=== PATIENT | female | born 1970 | race Caucasian/White ===

== ENCOUNTER 2017-11-16 18:43 | Emergency (ER) | payer OTHER ==
[2017-11-16] MEDS: FAMOTIDINE 20 MG TABLET. PO (19:05)
[2017-11-16] MEDS: methylPREDNISolone SOD SUCC PF 125 MG/2 ML VIAL. IM (19:05)
== END 2017-11-16 19:18 | disposition home or self-care (01) ==
LOC: ER 18:43
DX: L23.7 Allergic contact dermatitis due to plants, except food (principal); Z88.0 Allergy status to penicillin; Z88.1 Allergy status to other antibiotic agents; Z88.4 Allergy status to anesthetic agent; Z88.6 Allergy status to analgesic agent
CPT/HCPCS: 96372; 99283; J2930

== ENCOUNTER 2019-01-31 22:16 | Emergency (ER) | payer OTHER ==
[~2019-01-31] VITALS: Ht 161.3 cm; Wt 62.1 kg
[~2019-01-31 22:16] MED LIST: ALBU2.5V8 INH; BENZ100C PO; BUDE180A IH; CETI10TA16 PO; DOXY100C2 PO; FAMO20TA5 PO; FLUT9.9S NS; GUAI-108 PO; HYDR25TA PO; MONT10TA49 PO; MULT1TAB52 PO; PRED-220 PO
[2019-01-31 22:20] VITALS: BP 139/78
[2019-01-31] MEDS ORDERED: SULF1TAB24 PO (23:24)
--- NOTE | 2019-01-31 23:27 | PHYS DOC ---
Past Medical History Past Medical History: No Pertinent History (RANDALL LEO APRN) Past Surgical History: Hysterectomy, Other Additional Past Surgical Histo: partial colon removal (RANDALL LEO APRN) Additional Information: 1/ppd Alcohol Use: Occasionally Drug Use: None (RANDALL LEO APRN) Adult General Chief Complaint Chief Complaint: SKIN PROBLEM HPI HPI Patient is a 48 year old female who presents with [lesion to her left chest wall for the past several months, worsened significantly over the last 3 days. Patient reports she had a raised lump on her left chest wall starting approximately 8 months ago, had not caused her no discomfort or concerns. Reports she had been working, does not know what may have happened, but she rubbed against something and 3 days ago she started notice it to be red, tender, swollen. States she has not taken any medications for this, does state she has several allergies. States he has been very itchy, and feels warm] (RANDALL LEO APRN) Review of Systems Review of Systems Constitutional: Denies fever or chills [] Eyes: Denies change in visual acuity, redness, or eye pain [] HENT: Denies nasal congestion or sore throat [] Respiratory: Denies cough or shortness of breath [] Cardiovascular: No additional information not addressed in HPI [] GI: Denies abdominal pain, nausea, vomiting, bloody stools or diarrhea [] : Denies dysuria or hematuria [] Musculoskeletal: Denies back pain or joint pain [] Integument: Denies rash reports lesion to left anterior chest wall[] Neurologic: Denies headache, focal weakness or sensory changes [] Endocrine: Denies polyuria or polydipsia [] All other systems were reviewed and found to be within normal limits, except as documented in this note. (RANDALL LEO APRN) Current Medications Current Medications Current Medications Medications (Trade) Dose Ordered Sig/Tomasa Start Time Stop Time Status Last Admin Dose Admin Trimethoprim/ Sulfamethoxazole (Bactrim Ds) 1 tab 1X ONCE 01/31/19 23:45 01/31/19 23:46 DC 01/31/19 23:41 1 TAB (YVON DE SOUZA DO) Allergies Allergies Allergies Coded Allergies Type Severity Reaction Last Updated Verified Penicillins Allergy Severe Anaphylaxis 02/10/14 Yes cephalexin Allergy Severe anaphylatic 02/10/14 No lidocaine Allergy Severe Anaphylaxis 02/10/14 No ketorolac Allergy Intermediate 03/07/15 No (YVON DE SOUZA DO) Physical Exam Physical Exam Constitutional: Well developed, well nourished, no acute distress, non-toxic appearance. [] HENT: Normocephalic, atraumatic, bilateral external ears normal, oropharynx moist, no oral exudates, nose normal. [] Eyes: PERRLA, EOMI, conjunctiva normal, no discharge. [] Neck: Normal range of motion, no tenderness, supple, no stridor. [] Cardiovascular:Heart rate regular rhythm, no murmur [] Lungs & Thorax: Bilateral breath sounds clear to auscultation [] Abdomen: Bowel sounds normal, soft, no tenderness, no masses, no pulsatile masses. [] Skin: Warm, dry, no erythema, no rash. Approximately 8 mm round, raised approximately 2 mm nodule to left chest wall. Underlying noted 1cm diameter firm nodule. Tender. Erythema surrounding, approximately 5 mm diameter of erythema without underlying process.[] Back: No tenderness, no CVA tenderness. [] Extremities: No tenderness, no cyanosis, no clubbing, ROM intact, no edema. [] Neurologic: Alert and oriented X 3, normal motor function, normal sensory function, no focal deficits noted. [] Psychologic: Affect normal, judgement normal, mood normal. [] (RANDALL LEO APRN) Current Patient Data Vital Signs Vital Signs Date Time Temp Pulse Resp B/P (MAP) Pulse Ox O2 Delivery O2 Flow Rate FiO2 01/31/19 22:20 98.4 92 16 139/78 (98) 96 98.4 (YVON DE SOUZA DO) EKG EKG [] (RANDALL LEO APRN) Radiology/Procedures Radiology/Procedures [] (RANDALL LEO APRN) Course & Med Decision Making Course & Med Decision Making Pertinent Labs and Imaging studies reviewed. (See chart for details) [Discussed findings with patient, discussed option to adin lesion, nothing to drain. Patient in agreement with this. We will provide antibiotics, patient to follow-up with primary care (RANDALL LEO APRN) Dragon Disclaimer Dragon Disclaimer This electronic medical record was generated, in whole or in part, using a voice recognition dictation system. (RANDALL LEO APRN) Incision and Drainage Indication: abscess Procedure: The patient was positioned appropriately. . An incision was then made over the apex of the lesion and small amount of blood was expressed. The patient tolerated the procedure well. Complications: none. (RANDALL LEO APRN) Departure Departure Impression: Primary Impression: Skin infection Disposition: HOME, SELF-CARE Condition: GOOD Referrals: NO PCP (PCP) Patient Instructions: Skin Infections Additional Instructions: As we discussed keep your wound clean and dry tonight. Tomorrow you can let it air dry You can use a warm compress to help bring it to a head Follow up with your primary care this week. take the antibiotic until it is gone. Scripts Sulfamethoxazole/Trimethoprim (BACTRIM DS TABLET) 1 Each Tablet 1 TAB PO BID, #14 TAB Prov: RANDALL LEO APRN 01/31/19 Attending Signature Attending Signature I have reviewed the PA/ROD PULLER's note and plan of care. I was available for consultation as needed during the patient's visit in the emergency department. I agree with the clinical impression, plan, and disposition. (YVON DE SOUZA DO) RANDALL LEO APRN Jan 31, 2019 23:27 YVON DE SOUZA DO Feb 01, 2019 21:35
[2019-01-31] MEDS ORDERED: SMZ/TMP 800/160MG TABLET. PO ONE (23:45)
[2019-02-05] MEDS ORDERED: MUPI22OI2 TP (14:18)
[2019-02-05] MEDS ORDERED: CYCL10TA2 PO (14:18)
== END 2019-01-31 23:30 | disposition home or self-care (01) ==
LOC: ER 22:16
DX: L02.213 Cutaneous abscess of chest wall (principal); F17.200 Nicotine dependence, unspecified, uncomplicated; Z88.0 Allergy status to penicillin; Z88.1 Allergy status to other antibiotic agents; Z88.4 Allergy status to anesthetic agent; Z88.6 Allergy status to analgesic agent
CPT/HCPCS: 10060; 99283

== ENCOUNTER 2019-02-05 15:41 | Day surgery (SDC) | payer OTHER ==
[~2019-02-05] VITALS: Ht 160 cm; Wt 67.0 kg
[~2019-02-05 15:41] MED LIST changes: +CYCL10TA2 PO; +MUPI22OI2 TP; +SULF1TAB24 PO
[2019-02-05] MEDS ORDERED: fentaNYL PF VIAL 100 MCG/2 ML VIAL ONE ×2 (16:15→18:32)
[2019-02-05] MEDS ORDERED: IV RINGERS,LACTATED 1000ML 1,000 ML IV ONE (16:15)
[2019-02-05] MEDS ORDERED: fentaNYL PF VIAL 100 MCG/2 ML VIAL IV PRN ×4 (16:30→18:45)
[2019-02-05] MEDS ORDERED: PROPOFOL 20 ML IV ONE (16:36)
[2019-02-05] MEDS ORDERED: ONDANSETRON PF 4 MG/2 ML VIAL. ONE (16:37)
[2019-02-05] MEDS ORDERED: DEXAMETHASONE SOD PHOS 4 MG/ML VIAL ONE (16:37)
[2019-02-05] MEDS ORDERED: IV RINGERS,LACTATED 1000ML 1,000 ML IV SCH ×2 (17:20→18:33)
[2019-02-05] MEDS: fentaNYL PF VIAL 100 MCG/2 ML VIAL IV PRN ×3 (17:22→18:45)
[2019-02-05] MEDS ORDERED: LIDOCAINE 1% PF 2 ML VIAL. ID PRN (17:30)
[2019-02-05] MEDS ORDERED: MIDAZOLAM HCL/PF 2 MG/2 ML VIAL. IV PRN (17:30)
[2019-02-05] MEDS ORDERED: PHENYLEPHRINE in 0.9% NACL PF 1 MG/10 ML SYRINGE. IV ONE (18:06)
[2019-02-05] MEDS ORDERED: SURGICEL HEMOSTAT 2X3 EACH. ONE (18:11)
[2019-02-05] MEDS ORDERED: BACITRACIN TOPICAL OINT 14GM TUBE. TP ONE (18:11)
[2019-02-05] MEDS ORDERED: SEVOFLURANE UP TO 15 MINUTES. IH ONE (18:18)
[2019-02-05] MEDS ORDERED: PROCHLORPERAZINE 10 MG/2 ML VIAL. ONE (18:32)
--- NOTE | 2019-02-05 18:34 | DISCH ---
DISCHARGE INSTRUCTIONS Condition on Discharge Condition on Discharge: Stable Activity After Discharge Activity Instructions for Disc: Activity as tolerated Driving Instructions after Dis: Do not drive today Diet after Discharge Diet after Discharge: Regular Wound Incision Care Wound/Incision Care: Ice to area for comfort Other wound/incision instructi: Friday take a shower and remove packing after it gets good and wet. Wound Care Equipment: Dressings (antibiotic ointment, gauze) Follow-Up Follow up with: Chip next week KENYA JAVIER MD Feb 05, 2019 18:34
--- NOTE | 2019-02-05 18:41 | PDOC ---
BRIEF OPERATIVE NOTE Date: Feb 05, 2019 Pre-Op Diagnosis abdominal wall abscess Post-Op Diagnosis same Procedure Performed excisional debridement of skin and subcutaneous tissue Surgeon Chip Anesthesia Type: General Blood Loss <5cc IV Fluid 500cc Specimens Obtained cultures Findings sebaceous abscess Complications none Operative Note Wk # [id number] KENYA JAVIER MD Feb 05, 2019 18:41
[2019-02-05] MEDS ORDERED: MORPHINE SULFATE 2 MG/ML VIAL. IV PRN (18:45)
[2019-02-05] MEDS ORDERED: PROCHLORPERAZINE 10 MG/2 ML VIAL. IV PRN (18:45)
[2019-02-05] MEDS ORDERED: HYDROmorphone 2 MG/ML VIAL IV PRN (18:45)
[2019-02-05 19:35] VITALS: BP 109/55
--- NOTE | 2019-02-05 22:04 | OP ---
DATE OF SURGERY: 02/05/2019 PREOPERATIVE DIAGNOSIS: Abdominal wall abscess. POSTOPERATIVE DIAGNOSIS: Abdominal wall abscess. PROCEDURE: Excisional debridement of skin and subcutaneous tissue. SURGEON: Kenya Javier MD ANESTHESIA: General. ESTIMATED BLOOD LOSS: Less than 5 mL. INTRAVENOUS FLUIDS: 500 mL. DESCRIPTION OF PROCEDURE: The patient brought to the operating suite, given a general LMA. The abdominal wall was prepped and draped in usual sterile fashion. An elliptical incision was made over the fluctuant process and the skin and underlying soft tissue was excised. Cultures were made. Wound was irrigated and checked for hemostasis. When present, it was addressed with 1-inch plain Nu Gauze and a small piece of Surgicel. Sterile dressing applied. The patient awakened from her anesthetic and taken to the recovery room in satisfactory condition. KENYA JAVIER MD DR: MADELAINE/nts JOB#: [id number] / [id number]
== END 2019-02-05 20:00 | disposition home or self-care (01) ==
LOC: SURG 15:41
PROVIDERS: ATTEND Surgery
DX: L02.211 Cutaneous abscess of abdominal wall (principal); L02.92 Furuncle, unspecified; F17.210 Nicotine dependence, cigarettes, uncomplicated; Z90.710 Acquired absence of both cervix and uterus; Z98.890 Other specified postprocedural states; Z90.49 Acquired absence of other specified parts of digestive tract
CPT/HCPCS: 11042; 87071; 87075; A7015; J0780; J1100; J1956; J2405; J2704; J3010; J2370; A4461

== ENCOUNTER 2021-09-03 05:55 | Observation (INO) | payer OTHER ==
[~2021-09-03] VITALS: Ht 160 cm; Wt 77.6 kg
[~2021-09-03 05:55] MED LIST changes: +CYCL10TA19 PO; -CYCL10TA2 PO; -DOXY100C2 PO; +DOXY100C3 PO; +MULT-445 PO; -MULT1TAB52 PO
--- NOTE | 2021-09-03 06:32 | ED.ADGEN ---
Past Medical History Past Medical History: No Pertinent History, Immunosuppression Past Surgical History: No Surgical History Additional Past Surgical Histo: partial colon removal Smoking Status: Never Smoker Alcohol Use: None Drug Use: None General Adult EDM: Chief Complaint: FLANK PAIN HPI: HPI: Patient is a 51 year old female presenting with left flank pain. Patient ates she has had intermittent pain for the past 2 weeks. Patient is urinary urgency with decreased urination. Denies any blood in her urine, dysuria, vaginal bleeding or discharge. Patient denies any fevers, chills, nausea, vomiting, or diarrhea. Patient has a history of kidney stones and lithotripsy about 20 years ago. Patient states this feels similar. Patient denies any falls, did state that she was picking up her granddaughter multiple times yesterday. Says around midnight the pain got severely worse. Review of Systems: Review of Systems: All other systems within normal limits except for as noted in the HPI Current Medications: Current Medications Medications (Trade) Dose Ordered Sig/Tomasa Start Time Stop Time Status Last Admin Dose Admin Acetaminophen (Tylenol Supp) 650 mg PRN Q6HRS PRN 09/03/21 09:45 Bisacodyl (Dulcolax Supp) 10 mg PRN DAILY PRN 09/03/21 09:45 Fentanyl Citrate (Fentanyl 2ml Vial) 75 mcg 1X ONCE 09/03/21 06:45 09/03/21 06:47 DC 09/03/21 06:45 75 MCG Hydromorphone HCl (Dilaudid) 1 mg PRN Q3HRS PRN 09/03/21 09:45 Info (CONTRAST GIVEN -- Rx MONITORING) 1 each PRN DAILY PRN 09/03/21 09:45 09/05/21 09:44 Iohexol (Omnipaque 300 Mg/ml) 400 ml 1X ONCE 09/03/21 10:00 09/03/21 10:01 DC 09/03/21 10:20 400 ML Morphine Sulfate (Morphine Sulfate) 4 mg 1X ONCE 09/03/21 08:45 09/03/21 08:46 DC 09/03/21 09:03 4 MG Ondansetron HCl (Zofran) 4 mg PRN Q4HRS PRN 09/03/21 09:45 09/03/21 10:54 4 MG Orphenadrine Citrate (Norflex) 60 mg 1X ONCE 09/03/21 08:30 09/03/21 08:31 DC 09/03/21 08:18 60 MG Ringer's Solution 1,000 ml @ 125 mls/hr Q8H 09/03/21 09:45 09/04/21 01:44 09/03/21 12:24 125 MLS/HR Allergies: Allergies: Allergies Coded Allergies Type Severity Reaction Last Updated Verified Penicillins Allergy Severe Anaphylaxis 02/05/19 Yes amoxicillin Allergy Severe Anaphylaxis 02/05/19 Yes cephalexin Allergy Severe anaphylatic 09/03/21 Yes clavulanic acid Allergy Severe Anaphylaxis 02/05/19 Yes clindamycin Allergy Severe Swelling 02/05/19 Yes lidocaine Allergy Severe Anaphylaxis 09/03/21 Yes ketorolac Allergy Intermediate 09/03/21 Yes Physical Exam: PE: Constitutional: Well developed, well nourished, no acute distress, non-toxic appearance. [] HENT: Normocephalic, atraumatic, bilateral external ears normal, nose normal. [] Eyes: PERRLA, conjunctiva normal, no discharge. [] Neck: No rigidity, supple, no stridor. [] Cardiovascular: Regular rate and rhythm, brisk cap refill [] Lungs & Thorax: Non labored symmetric respirations, no tachypnea or respiratory distress [] Abdomen: Soft, nondistended, left upper quadrant tenderness with guarding. Skin: Warm, dry, no erythema, no rash. [] Back: Unremarkable, no step-off deformity, no point tenderness on spine. Left flank tender Extremities: No deformities, range of motion grossly intact, no lower extremity edema [] Neurologic: Alert and oriented X 3, no focal deficits noted. [] Psychologic: Affect normal, judgement normal, mood normal. [] Current Patient Data: Labs: Laboratory Tests Test 09/03/21 06:15 09/03/21 06:20 09/03/21 07:27 White Blood Count 8.0 x10^3/uL (4.0-11.0) Red Blood Count 5.39 x10^6/uL (3.50-5.40) Hemoglobin 14.9 g/dL (12.0-15.5) Hematocrit 45.9 % (36.0-47.0) Mean Corpuscular Volume 85 fL (79-100) Mean Corpuscular Hemoglobin 28 pg (25-35) Mean Corpuscular Hemoglobin Concent 33 g/dL (31-37) Red Cell Distribution Width 13.8 % (11.5-14.5) Platelet Count 282 x10^3/uL (140-400) Neutrophils (%) (Auto) 51 % (31-73) Lymphocytes (%) (Auto) 38 % (24-48) Monocytes (%) (Auto) 9 % (0-9) Eosinophils (%) (Auto) 1 % (0-3) Basophils (%) (Auto) 1 % (0-3) Neutrophils # (Auto) 4.1 x10^3/uL (1.8-7.7) Lymphocytes # (Auto) 3.0 x10^3/uL (1.0-4.8) Monocytes # (Auto) 0.7 x10^3/uL (0.0-1.1) Eosinophils # (Auto) 0.1 x10^3/uL (0.0-0.7) Basophils # (Auto) 0.0 x10^3/uL (0.0-0.2) Urine Collection Type Unknown Urine Color (Auto) Light yellow Urine Turbidity Clear Urine pH (Auto) 8.5 (<5.0-8.0) Urine Specific [place] 1.021 (1.000-1.030) Urine Protein (Auto) 100 mg/dL (Negative) Urine Glucose (Auto)(UA) Negative mg/dL (Negative) Urine Ketones (Auto) Negative mg/dL (Negative) Urine Blood (Auto) Negative (Negative) Urine Nitrite Negative (Negative) Urine Bilirubin (Auto) Negative (Negative) Urine Urobilinogen (Auto) Normal mg/dL (Normal) Urine Leukocyte Esterase (Auto) Negative (Negative) Urine RBC Rare /HPF (0-2) Urine WBC Occ /HPF (0-4) Urine Squamous Epithelial Cells Few /LPF Urine Amorphous Sediment Present /HPF Urine Bacteria 0 /HPF (0-FEW) Urine Mucus Slight /LPF Urine Test Negative (NEG) Sodium Level 138 mmol/L (136-145) Potassium Level 4.5 mmol/L (3.5-5.1) Chloride Level 102 mmol/L (98-107) Carbon Dioxide Level 29 mmol/L (21-32) Anion Gap 7 (6-14) Blood Urea Nitrogen 10 mg/dL (7-20) Creatinine 0.6 mg/dL (0.6-1.0) Estimated GFR (Cockcroft-Gault) 105.4 BUN/Creatinine Ratio 17 (6-20) Glucose Level 87 mg/dL (70-99) Calcium Level 9.0 mg/dL (8.5-10.1) Total Bilirubin 0.5 mg/dL (0.2-1.0) Aspartate Amino Transferase (AST) 26 U/L (15-37) Alanine Aminotransferase (ALT) 33 U/L (14-59) Alkaline Phosphatase 78 U/L (46-116) Total Protein 7.9 g/dL (6.4-8.2) Albumin 4.3 g/dL (3.4-5.0) Albumin/Globulin Ratio 1.2 (1.0-1.7) Lipase 859 U/L (73-393) H Laboratory Tests 09/03/21 06:15 Laboratory Tests 09/03/21 07:27 Vital Signs: Vital Signs Date Time Temp Pulse Resp B/P (MAP) Pulse Ox O2 Delivery O2 Flow Rate FiO2 09/03/21 10:00 73 112/64 (80) 09/03/21 09:00 18 97 Room Air 09/03/21 06:06 98.0 98.0 EKG: EKG: [] Heart Score: C/O Chest Pain: No Risk Factors: Risk Factors: DM, Current or recent (<one month) smoker, HTN, HLP, family history of CAD, obesity. Risk Scores: Score 0 - 3: 2.5% MACE over next 6 weeks - Discharge Home Score 4 - 6: 20.3% MACE over next 6 weeks - Admit for Clinical Observation Score 7 - 10: 72.7% MACE over next 6 weeks - Early Invasive Strategies Radiology/Procedures: Radiology/Procedures: [facility] [address] [place] [address] IMAGING REPORT Signed PATIENT: FAWAD ZUNIGA ACCOUNT: [id number] : 1970 LOCATION: ER AGE: 51 SEX: F EXAM STATUS: REG ER ORD. PHYSICIAN: NABILA LOBO MD REASON: left flank pain PROCEDURE: CT ABD PELV W/ IV CONTRST ONLY INDICATION: Reason: left flank pain / Spl. Instructions: IV omni 300 75 mls / History: COMPARISON: February 2014 TECHNIQUE: Axial CT images were obtained through the abdomen and pelvis with intravenous contrast. One or more of the following individualized dose reduction techniques were utilized for this examination: 1. Automated exposure control; 2. Adjustment of the mA and/or kV according to patient size; 3. Use of iterative reconstruction technique. FINDINGS: Small hiatal hernia. Vascular: Scattered calcific atherosclerosis. Hepatobiliary: Liver is mildly low density. Nonspecific but can be from mild fatty infiltration. Pancreas: No peripancreatic edema. Spleen: Spleen unremarkable. Renal/Bladder: Urinary bladder is decompressed. No hydronephrosis. Gastrointestinal: Colonic diverticulosis. Postoperative changes to the colon with suture line seen. Small fat-containing umbilical hernia. Fat-containing anterior abdominal wall hernia. There is a couple of mildly prominent loops of small bowel including one in the left upper quadrant measuring up to 32 mm without high-grade transition point to suggest obstruction. Could be from phase of peristalsis. Mild degenerative changes of the spine. IMPRESSION: * No hydronephrosis or radiopaque obstructive ureter stone. * There is a couple of mildly dilated loops of bowel in the left-side of the abdomen without high-grade transition point to suggest obstruction. Electronically signed by: Lily Teresa MD (09/03/2021 8:29 AM) [id number] DICTATED and SIGNED BY: LILY TERESA MD DATE: 09/03/21818 [] Course & Med Decision Making: Course & Med Decision Making Pertinent Labs and Imaging studies reviewed. (See chart for details) Patient having severe pain requesting pain medications. Initial CT results just dilated loops of bowel without definitive obstruction. Discussed with the radiologist, Dr. Espinoza, who said there could be an early obstruction and recommends a small bowel series. Patient admitted to hospitalist for further investigation, case discussed with general surgery. [] Liz Disclaimer: Liz Disclaimer: This electronic medical record was generated, in whole or in part, using a voice recognition dictation system. Departure Departure Impression: Primary Impression: Left flank pain Disposition: ADMITTED INPATIENT Admitting Physician: HIMS Condition: STABLE Referrals: NO PCP (PCP) NABILA LOBO MD Sep 03, 2021 06:32
[2021-09-03] MEDS ORDERED: fentaNYL PF VIAL 100 MCG/2 ML VIAL IVP ONE (06:45)
[2021-09-03] MEDS ORDERED: ONDANSETRON PF 4 MG/2 ML VIAL. IVP ONE (06:45)
[2021-09-03] MEDS ORDERED: CONTRAST GIVEN. MC PRN ×2 (07:00→09:45)
[2021-09-03] MEDS ORDERED: IOHEXOL 300 MG/ML 100ML VIAL. IV ONE (07:00)
[2021-09-03 07:11] LABS: BASO % 1 % (0-3); EOS # 0.1 x10^3/uL (0.0-0.7); EOS % 1 % (0-3); HEMATOCRIT 45.9 % (36.0-47.0); HEMOGLOBIN 14.9 g/dL (12.0-15.5); LYMPH % 38 % (24-48); MEAN CORPUSCULAR HEMOGLOBIN 28 pg (25-35); MEAN CORPUSCULAR HGB CONC 33 g/dL (31-37); MEAN CORPUSCULAR VOLUME 85 fL (79-100); MONO # 0.7 x10^3/uL (0.0-1.1); MONO % 9 % (0-9); NEUT # 4.1 x10^3/uL (1.8-7.7); NEUT % 51 % (31-73); PLATELET COUNT 282 x10^3/uL (140-400); RED BLOOD COUNT 5.39 x10^6/uL (3.50-5.40); RED CELL DISTRIBUTION WIDTH 13.8 % (11.5-14.5)
[2021-09-03 07:16] LABS: U PREG PATIENT NEGATIVE (NEG)
[2021-09-03 07:24] LABS: AMORPHOUS SEDIMENT,UR PRESENT /HPF; BACTERIA,URINE 0 /HPF (0-FEW); RBC,URINE RARE /HPF (0-2); WBC,URINE OCC /HPF (0-4)
[2021-09-03 07:51] LABS: CREATININE 0.6 mg/dL (0.6-1.0); GFR 105.4
[2021-09-03 07:57] LABS: ALBUMIN 4.3 g/dL (3.4-5.0); ALBUMIN/GLOBULIN RATIO 1.2 (1.0-1.7); TOTAL BILIRUBIN 0.5 mg/dL (0.2-1.0); TOTAL PROTEIN 7.9 g/dL (6.4-8.2)
[2021-09-03 08:01] LABS: POTASSIUM 4.5 mmol/L (3.5-5.1)
[2021-09-03] MEDS ORDERED: ORPHENADRINE CITRATE 60 MG/2 ML VIAL. IM ONE (08:30)
--- NOTE | 2021-09-03 08:32 | RAD ---
INDICATION: Reason: left flank pain / Spl. Instructions: IV omni 300 75 mls / History: COMPARISON: February 2014 TECHNIQUE: Axial CT images were obtained through the abdomen and pelvis with intravenous contrast. One or more of the following individualized dose reduction techniques were utilized for this examinat ion: 1. Automated exposure control; 2. Adjustment of the mA and/or kV according to patient size; 3 . Use of iterative reconstruction technique. FINDINGS: Small hiatal hernia. Vascular: Scattered calcific atherosclerosis. Hepatobiliary: Liver is mildly low density. Nonspecific but can be from mild fatty infiltration. Pancreas: No peripancreatic edema. Spleen: Spleen unremarkable. Renal/Bladder: Urinary bladder is decompressed. No hydronephrosis. Gastrointestinal: Colonic diverticulosis. Postoperative changes to the colon with suture line seen. S mall fat-containing umbilical hernia. Fat-containing anterior abdominal wall hernia. There is a coupl e of mildly prominent loops of small bowel including one in the left upper quadrant measuring up to 3 2 mm without high-grade transition point to suggest obstruction. Could be from phase of peristalsis. Mild degenerative changes of the spine. IMPRESSION: * No hydronephrosis or radiopaque obstructive ureter stone. * There is a couple of mildly dilated loops of bowel in the left-side of the abdomen without high-gr trevin transition point to suggest obstruction. Electronically signed by: Bakari Avery MD (09/03/2021 8:29 AM) [id number]
[2021-09-03] MEDS ORDERED: MORPHINE SULFATE 4 MG/ML INJ. IV ONE (08:45)
[2021-09-03] MEDS ORDERED: HYDROmorphone 2 MG/ML INJ. IVP ONE (09:30)
[2021-09-03] MEDS ORDERED: HYDROmorphone 2 MG/ML INJ. IVP PRN (09:45)
[2021-09-03] MEDS ORDERED: BISACODYL 10 MG SUPP.RECT. PR PRN (09:45)
[2021-09-03] MEDS ORDERED: ACETAMINOPHEN 650 MG SUPP.RECT. PR PRN (09:45)
--- NOTE | 2021-09-03 09:47 | PDOC1 ---
History and Physical Date of Admission Date of Admission DATE: 09/03/21 TIME: 09:47 Identification/Chief Complaint Chief Complaint Left flank pain Source Source: Patient History of Present Illness History of Present Illness Ms Pagan is a 51yo female with PMHx partial colectomy, smoker who presents to ED c/o left flank pain. She notes is been slight intermittent for the past 2 weeks but became significantly worse the evening of 09/02/2021 woke her from sleep 09/03/2021. Pain is crampy and colicky running from her left flank radiating into her left upper quadrant and occasionally into her pelvis. Patient states she has had intermittent pain for the past 2 weeks. Patient has urinary urgency with decreased urination. Notes she has been getting up upwards of 5 times at night to urinate and is very small amounts of urine each time. Denies any blood in her urine, dysuria, vaginal bleeding or discharge. Patient denies any fevers, chills, nausea, vomiting, or diarrhea. Patient has a history of kidney stones and lithotripsy about 20 years ago. She notes a historic colectomy as well as TAHBSO. Denies any falls, did state that she was picking up her 2 year old niece multiple times yesterday. She initially noted that she had "couple" shots and later revised to say that she had at least 5 shots. Initially noted that she did not recall seeing a physician in the ED however re peat interview history is inconsistent patient noted that she has a history of ulcerative colitis and has been seen by GI in the past. Significant other in the room notes she had abdominal wall surgery does not recall a formal diagnosis of ulcerative colitis. Labs with WBC 8, Hb 14.9, platelets 282, NA 138, K4.5, BUN 10, CR 0.6, glucose 87, Lipase 859, urinalysis negative negative for leukocyte esterase. CT abdomen pelvis with no hydronephrosis or radiopaque obstructive ureter stones. A couple mildly dilated loops of bowel left-sided abdomen no suggestion of obstruction. Some diverticulosis noted and postoperative colonic changes. Due to concern for early small bowel obstruction small bowel follow-through series was performed which was negative. Her pain was not responsive to morphine or fentanyl and minimally by Dilaudid. Due to the severity of her pain she is admitted for further care Patient having severe pain requesting pain medications. Initial CT results just dilated loops of bowel without definitive obstruction. Discussed with the radiologist, Dr. Espinoza, who said there could be an early obstruction and re commends a small bowel series. Patient admitted to hospitalist for further investigation, case discussed with general surgery. [] Liz Disclaimer: Liz Disclaimer: This electronic medical record was generated, in whole or in part, using a voice recognition dictation system. Departure Departure Impression: Primary Impression: Left flank pain Past Medical History Pulmonary: Asthma, COPD Psych: Anxiety, Addictions Endocrine: No pertinent hx Past Surgical History Past Surgical History: Appendectomy, Hysterectomy, Colectomy Family History Family History: Asthma, Chronic Bronchitis, Obesity Family History: Parent Social History Smoke: 1 pack per day ALCOHOL: heavy Drugs: None Current Medications Current Medications Current Medications Fentanyl Citrate (Fentanyl 2ml Vial) 75 mcg 1X ONCE IVP Last administered on 09/03/21at 06:45; Start 09/03/21 at 06:45; Stop 09/03/21 at 06:47; Status DC Ondansetron HCl (Zofran) 4 mg 1X ONCE IVP Last administered on 09/03/21at 06:45; Start 09/03/21 at 06:45; Stop 09/03/21 at 06:47; Status DC Iohexol (Omnipaque 300 Mg/ml) 75 ml 1X ONCE IV Last administered on 09/03/21at 07:00; Start 09/03/21 at 07:00; Stop 09/03/21 at 07:01; Status DC Info (CONTRAST GIVEN -- Rx MONITORING) 1 each PRN DAILY PRN MC SEE COMMENTS; Start 09/03/21 at 07:00; Stop 09/05/21 at 06:59 Orphenadrine Citrate (Norflex) 60 mg 1X ONCE IM Last administered on 09/03/21at 08:18; Start 09/03/21 at 08:30; Stop 09/03/21 at 08:31; Status DC Morphine Sulfate (Morphine Sulfate) 4 mg 1X ONCE IV Last administered on 09/03/21at 09:03; Start 09/03/21 at 08:45; Stop 09/03/21 at 08:46; Status DC Hydromorphone HCl (Dilaudid) 1 mg 1X ONCE IVP ; Start 09/03/21 at 09:30; Stop 09/03/21 at 09:31; Status DC Iohexol (Omnipaque 300 Mg/ml) 400 ml 1X ONCE PO ; Start 09/03/21 at 10:00; Stop 09/03/21 at 10:01 Info (CONTRAST GIVEN -- Rx MONITORING) 1 each PRN DAILY PRN MC SEE COMMENTS; Start 09/03/21 at 09:45; Stop 09/05/21 at 09:44 Active Scripts Active Bactrim Ds Tablet (Sulfamethoxazole/Trimethoprim) 1 Each Tablet 1 Tab PO BID Proair Hfa Inhaler (Albuterol Sulfate) 8.5 Gm Hfa.aer.ad 1 Puff INH PRN Q6HRS PRN 30 Days Reported Mupirocin Ointment (Mupirocin) 22 Gm Oint...g. 1 Kelsey TP DAILY Cyclobenzaprine Hcl 10 Mg Tablet 10 Mg PO QHS Multivitamins (Multivitamin) 1 Each Tablet 1 Tab PO DAILY Allergies Allergies: Coded Allergies: Penicillins (Verified Allergy, Severe, Anaphylaxis, 02/05/19) amoxicillin (Verified Allergy, Severe, Anaphylaxis, 02/05/19) cephalexin (Verified Allergy, Severe, anaphylatic, 09/03/21) clavulanic acid (Verified Allergy, Severe, Anaphylaxis, 02/05/19) clindamycin (Verified Allergy, Severe, Swelling, 02/05/19) lidocaine (Verified Allergy, Severe, Anaphylaxis, 09/03/21) ketorolac (Verified Allergy, Intermediate, 09/03/21) ROS General: YES: Appetite; No: Chills, Night Sweats, Fatigue, Malaise, Other PSYCHOLOGICAL ROS: YES: Anxiety, Mood Swings; No: Behavioral Disorder, Concentration difficultie, Decreased libido, Depression, Disorientation, Hallucinations, Hostility, Irritablity, Memory difficulties, Obsessive thoughts, Physical abuse, Sexual abuse, Sleep disturbances, Suicidal ideation, Other Eyes: No Blurry vision, No Decreased vision, No Double vision, No Dry eyes, No Excessive tearing, No Eye Pain, No Itchy Eyes, No Loss of vision, No Photophobia, No Scotomata, No Uses contacts, No Uses glasses, No Other HEENT: No: Heacaches, Visual Changes, Hearing change, Nasal congestion, Nasal discharge, Oral lesions, Sinus pain, Sore Throat, Epistaxis, Sneezing, Snoring, Tinnitus, Vertigo, Vocal changes, Other ALLERGY AND IMMUNOLOGY: No: Hives, Insect Bite Sensitivity, Itchy/Watery Eyes, Nasal Congestion, Post Nasal Drip, Seasonal Allergies, Other Hematological and Lymphatic: No: Bleeding Problems, Blood Clots, Blood Transfusions, Brusing, Night Sweats, Pallor, Swollen Lymph Nodes, Other ENDOCRINE: No: Breast Changes, Galactorrhea, Hair Pattern Changes, Hot Flashes, Malaise/lethargy, Mood Swings, Palpitations, Polydipsia/polyuria, Skin Changes, Temperature Intolerance, Unexpected Weight Changes, Other Breast: No New/Changing Breast Lumps, No Nipple changes, No Nipple discharge, No Other Respiratory: No: Cough, Hemoptysis, Orthopnea, Pleuritic Pain, Shortness of breath, SOB with excertion, Sputum Changes, Stridor, Tachypnea, Wheezing, Other Cardiovascular: No Chest Pain, No Palpitations, No Orthopnea, No Paroxysmal Noc. Dyspnea, No Edema, No Lt Headedness, No Other Gastrointestinal: Yes Nausea, Yes Abdominal Pain; No Vomiting, No Diarrhea, No Constipation, No Melena, No Hematochezia, No Other Genitourinary: YES Dysuria, YES Frequency, YES Urgency, YES Pain, YES Flank Pain; No Incontinence, No Hematuria, No Retention, No Discharge, No Other, No , No , No , No , No , No , No Musculoskeletal: No Gait Disturbance, No Joint Pain, No Joint Stiffness, No Joint Swelling, No Muscle Pain, No Muscular Weakness, No Pain In:, No Swelling In:, No Other Neurological: No Behavorial Changes, No Bowel/Bladder ControlChng, No Confusion, No Dizziness, No Gait Disturbance, No Headaches, No Impaired Coord/ balance, No Memory Loss, No Numbness/Tingling, No Seizures, No Speech Problems, No Tremors, No Visual Changes, No Weakness, No Other Skin: No Dry Skin, No Eczema, No Hair Changes, No Lumps, No Mole Changes, No Mottling, No Nail Changes, No Pruritus, No Rash, No Skin Lesion Changes, No Other, No Acne Physical Exam General: Alert, Oriented X3, Cooperative, moderate distress HEENT: Atraumatic, PERRLA, EOMI, Mucous membr. moist/pink Lungs: Clear to auscultation, Normal air movement Heart: S1S2, RRR, no thrills, no rubs, no gallops, no murmurs Abdomen: Normal bowel sounds, Soft, No hepatosplenomegaly, No masses, Other (le ft upper quadrant and left flank tenderness) Rectal Exam: not examined Extremities: No clubbing, No cyanosis, No edema, Normal pulses, No tenderness/swelling Skin: No rashes, No breakdown, No significant lesion Neuro: Normal gait, Normal speech, Strength at 5/5 X4 ext, Normal tone, Sensation intact, Cranial nerves 3-12 NL, Reflexes 2+ Psych/Mental Status: Mental status NL, Mood NL Vitals Vitals Vital Signs Date Time Temp Pulse Resp B/P (MAP) Pulse Ox O2 Delivery O2 Flow Rate FiO2 09/03/21 06:45 20 09/03/21 06:06 98.0 96 144/74 (97) 98 Room Air 98.0 Labs Labs Laboratory Tests Test 09/03/21 06:15 09/03/21 06:20 09/03/21 07:27 White Blood Count 8.0 x10^3/uL (4.0-11.0) Red Blood Count 5.39 x10^6/uL (3.50-5.40) Hemoglobin 14.9 g/dL (12.0-15.5) Hematocrit 45.9 % (36.0-47.0) Mean Corpuscular Volume 85 fL (79-100) Mean Corpuscular Hemoglobin 28 pg (25-35) Mean Corpuscular Hemoglobin Concent 33 g/dL (31-37) Red Cell Distribution Width 13.8 % (11.5-14.5) Platelet Count 282 x10^3/uL (140-400) Neutrophils (%) (Auto) 51 % (31-73) Lymphocytes (%) (Auto) 38 % (24-48) Monocytes (%) (Auto) 9 % (0-9) Eosinophils (%) (Auto) 1 % (0-3) Basophils (%) (Auto) 1 % (0-3) Neutrophils # (Auto) 4.1 x10^3/uL (1.8-7.7) Lymphocytes # (Auto) 3.0 x10^3/uL (1.0-4.8) Monocytes # (Auto) 0.7 x10^3/uL (0.0-1.1) Eosinophils # (Auto) 0.1 x10^3/uL (0.0-0.7) Basophils # (Auto) 0.0 x10^3/uL (0.0-0.2) Urine Collection Type Unknown Urine Color (Auto) Light yellow Urine Turbidity Clear Urine pH (Auto) 8.5 (<5.0-8.0) Urine Specific [place] 1.021 (1.000-1.030) Urine Protein (Auto) 100 mg/dL (Negative) Urine Glucose (Auto)(UA) Negative mg/dL (Negative) Urine Ketones (Auto) Negative mg/dL (Negative) Urine Blood (Auto) Negative (Negative) Urine Nitrite Negative (Negative) Urine Bilirubin (Auto) Negative (Negative) Urine Urobilinogen (Auto) Normal mg/dL (Normal) Urine Leukocyte Esterase (Auto) Negative (Negative) Urine RBC Rare /HPF (0-2) Urine WBC Occ /HPF (0-4) Urine Squamous Epithelial Cells Few /LPF Urine Amorphous Sediment Present /HPF Urine Bacteria 0 /HPF (0-FEW) Urine Mucus Slight /LPF Urine Test Negative (NEG) Sodium Level 138 mmol/L (136-145) Potassium Level 4.5 mmol/L (3.5-5.1) Chloride Level 102 mmol/L (98-107) Carbon Dioxide Level 29 mmol/L (21-32) Anion Gap 7 (6-14) Blood Urea Nitrogen 10 mg/dL (7-20) Creatinine 0.6 mg/dL (0.6-1.0) Estimated GFR (Cockcroft-Gault) 105.4 BUN/Creatinine Ratio 17 (6-20) Glucose Level 87 mg/dL (70-99) Calcium Level 9.0 mg/dL (8.5-10.1) Total Bilirubin 0.5 mg/dL (0.2-1.0) Aspartate Amino Transf (AST/SGOT) 26 U/L (15-37) Alanine Aminotransferase (ALT/SGPT) 33 U/L (14-59) Alkaline Phosphatase 78 U/L (46-116) Total Protein 7.9 g/dL (6.4-8.2) Albumin 4.3 g/dL (3.4-5.0) Albumin/Globulin Ratio 1.2 (1.0-1.7) Lipase 859 U/L (73-393) Laboratory Tests Test 09/03/21 06:15 09/03/21 06:20 09/03/21 07:27 White Blood Count 8.0 x10^3/uL (4.0-11.0) Red Blood Count 5.39 x10^6/uL (3.50-5.40) Hemoglobin 14.9 g/dL (12.0-15.5) Hematocrit 45.9 % (36.0-47.0) Mean Corpuscular Volume 85 fL (79-100) Mean Corpuscular Hemoglobin 28 pg (25-35) Mean Corpuscular Hemoglobin Concent 33 g/dL (31-37) Red Cell Distribution Width 13.8 % (11.5-14.5) Platelet Count 282 x10^3/uL (140-400) Neutrophils (%) (Auto) 51 % (31-73) Lymphocytes (%) (Auto) 38 % (24-48) Monocytes (%) (Auto) 9 % (0-9) Eosinophils (%) (Auto) 1 % (0-3) Basophils (%) (Auto) 1 % (0-3) Neutrophils # (Auto) 4.1 x10^3/uL (1.8-7.7) Lymphocytes # (Auto) 3.0 x10^3/uL (1.0-4.8) Monocytes # (Auto) 0.7 x10^3/uL (0.0-1.1) Eosinophils # (Auto) 0.1 x10^3/uL (0.0-0.7) Basophils # (Auto) 0.0 x10^3/uL (0.0-0.2) Urine Collection Type Unknown Urine Color (Auto) Light yellow Urine Turbidity Clear Urine pH (Auto) 8.5 (<5.0-8.0) Urine Specific [place] 1.021 (1.000-1.030) Urine Protein (Auto) 100 mg/dL (Negative) Urine Glucose (Auto)(UA) Negative mg/dL (Negative) Urine Ketones (Auto) Negative mg/dL (Negative) Urine Blood (Auto) Negative (Negative) Urine Nitrite Negative (Negative) Urine Bilirubin (Auto) Negative (Negative) Urine Urobilinogen (Auto) Normal mg/dL (Normal) Urine Leukocyte Esterase (Auto) Negative (Negative) Urine RBC Rare /HPF (0-2) Urine WBC Occ /HPF (0-4) Urine Squamous Epithelial Cells Few /LPF Urine Amorphous Sediment Present /HPF Urine Bacteria 0 /HPF (0-FEW) Urine Mucus Slight /LPF Urine Test Negative (NEG) Sodium Level 138 mmol/L (136-145) Potassium Level 4.5 mmol/L (3.5-5.1) Chloride Level 102 mmol/L (98-107) Carbon Dioxide Level 29 mmol/L (21-32) Anion Gap 7 (6-14) Blood Urea Nitrogen 10 mg/dL (7-20) Creatinine 0.6 mg/dL (0.6-1.0) Estimated GFR (Cockcroft-Gault) 105.4 BUN/Creatinine Ratio 17 (6-20) Glucose Level 87 mg/dL (70-99) Calcium Level 9.0 mg/dL (8.5-10.1) Total Bilirubin 0.5 mg/dL (0.2-1.0) Aspartate Amino Transf (AST/SGOT) 26 U/L (15-37) Alanine Aminotransferase (ALT/SGPT) 33 U/L (14-59) Alkaline Phosphatase 78 U/L (46-116) Total Protein 7.9 g/dL (6.4-8.2) Albumin 4.3 g/dL (3.4-5.0) Albumin/Globulin Ratio 1.2 (1.0-1.7) Lipase 859 U/L (73-393) Images Images CT ABD PELV W/ IV CONTRST ONLY Small hiatal hernia. Vascular: Scattered calcific atherosclerosis. Hepatobiliary: Liver is mildly low density. Nonspecific but can be from mild fatty infiltration. Pancreas: No peripancreatic edema. Spleen: Spleen unremarkable. Renal/Bladder: Urinary bladder is decompressed. No hydronephrosis. Gastrointestinal: Colonic diverticulosis. Postoperative changes to the colon with suture line seen. Small fat-containing umbilical hernia. Fat-containing anterior abdominal wall hernia. There is a couple of mildly prominent loops of small bowel including one in the left upper quadrant measuring up to 32 mm without high-grade transition point to suggest obstruction. Could be from phase of peristalsis. Mild degenerative changes of the spine. IMPRESSION: * No hydronephrosis or radiopaque obstructive ureter stone. * There is a couple of mildly dilated loops of bowel in the left-side of the abdomen without high-grade transition point to suggest obstruction. VTE Prophylaxis Ordered VTE Prophylaxis Devices: Yes VTE Pharmacological Prophylaxi: Yes Assessment/Plan Assessment/Plan Intractable abdominal pain -acute alcohol ingestion likely pancreatitis. No nephrolithiasis or acute GI issues obvious. Due to the severity of her pain will be kept n.p.o. IV fluids Dysuria -bladder completely decompressed no nephrolithiasis noted. [place] urinalysis. May be experiencing symptoms of atrophic vaginitis. Outpatient referral to urogynecology would be appropriate Smoker -counseled on cessation extensively Alcohol misuse -counseled on binge drinking. Obesity -counseled on lifestyle modification FEN - NPO PPX - lovenox FULL CODE Dispo - observation/inpatient for pancreatitis Justifications for Admission Other Justification LUIS COLINDRES MD Sep 03, 2021 09:47
[2021-09-03] MEDS ORDERED: IOHEXOL 300 MG/ML 100ML VIAL. PO ONE (10:00)
[2021-09-03] MEDS: ONDANSETRON PF 4 MG/2 ML VIAL. IVP PRN ×2 (10:54→17:26)
[2021-09-03] MEDS ORDERED: PANTOPRAZOLE IV PUSH 40 MG VIAL. IVP ONE ×2 (11:56→13:00)
--- NOTE | 2021-09-03 11:56 | RAD ---
DG SMALL BOWEL FOLLOW THROUGH Indication: Reason: sbo, luq 0.3 MIN FLUORO TIME, 400CC OMNI 300 / Spl. Instructions: DR. WATKINS / History: . Comparison: CT from earlier same day. Technique: Preliminary water project engineer film of the abdomen was obtained. Then following ingestion of oral contr ast, serial images of the abdomen were obtained to assess progress of contrast throughout the small b owel. Once the contrast reached the colon, fluoroscopic evaluation of the small bowel, particularly t he terminal ileum, was performed. Number of Fluoroscopic Images: 1 Findings: The water project engineer image demonstrates a nonobstructive bowel gas pattern. There are no distended small bowel loops. No strictures are seen. The small bowel fold pattern is unr emarkable. Transit time was normal at 60 minutes (normal <120 minutes.) IMPRESSION: 1. Unremarkable small bowel series. Electronically signed by: Juan Carlos Watkins DO (09/03/2021 11:54 AM) [id number]
[2021-09-03] MEDS: IV RINGERS,LACTATED 1000ML 1,000 ML IV SCH ×2 (12:24→20:17)
[2021-09-03 13:00] VITALS: BP 131/65
[2021-09-03 15:00] VITALS: BP 121/77
[2021-09-03] MEDS: HYDROmorphone 2 MG/ML INJ. IVP PRN ×2 (16:19→20:17)
--- NOTE | 2021-09-03 16:35 | NUR ---
PVR scan completed, 20mL urine in bladder.
[2021-09-03 19:00] VITALS: BP 128/79
[2021-09-03 23:00] VITALS: BP 109/79
[2021-09-04] MEDS: HYDROmorphone 2 MG/ML INJ. IVP PRN (00:30)
[2021-09-04 03:00] VITALS: BP 110/63
[2021-09-04 07:00] VITALS: BP 102/63
--- NOTE | 2021-09-04 10:05 | NUR ---
rapid covid and PCR test sent to lab 1000.
[2021-09-04] MEDS: MORPHINE SULFATE 2 MG/ML INJ. IV PRN ×3 (10:48→22:21)
[2021-09-04 11:09] LABS: ALBUMIN/GLOBULIN RATIO 1.2 (1.0-1.7); CALCIUM 8.6 mg/dL (8.5-10.1); CREATININE 0.6 mg/dL (0.6-1.0); GFR 105.4; POTASSIUM 3.1 mmol/L (3.5-5.1); TOTAL BILIRUBIN 0.6 mg/dL (0.2-1.0); TOTAL PROTEIN 7.4 g/dL (6.4-8.2)
--- NOTE | 2021-09-04 11:22 | PDOC ---
[employer] PROGRESS NOTE Date of Service DOS: DATE: 09/04/21 TIME: 11:19 Chief Complaint Chief Complaint Intractable abdominal pain Persistent nausea vomiting Yellow diarrhea Tobacco abuse Alcohol abuse Overweight History of Present Illness History of Present Illness 09/04/2021 Patient seen and examined Her is present Discussed with case management Discussed with RN Chart reviewed Currently patient is having extreme nausea Had to run to the bathroom and vomit while I was in the room States she is now having yellow diarrhea I called GI were going to consult them Vitals/I&O Vitals/I&O: Vital Signs Date Time Temp Pulse Resp B/P (MAP) Pulse Ox O2 Delivery O2 Flow Rate FiO2 09/04/21 10:48 Room Air 09/04/21 07:00 99.2 96 18 102/63 (76) 95 99.2 I & O 09/03/21 09/03/21 09/04/21 15:00 23:00 07:00 Intake Total 0 ml Balance 0 ml Physical Exam General: moderate distress, Other (Ran to the bathroom and vomited while I was in the room) Heart: Regular rate Lungs: Wheezing Abdomen: Normal bowel sounds, Soft, No hepatosplenomegaly, No masses, Other (left upper quadrant and left flank tenderness) Extremities: No clubbing, No cyanosis, No edema, Normal pulses, No tenderness/swelling Skin: No rashes, No breakdown, No significant lesion Labs Labs: Laboratory Tests Test 09/04/21 09:40 09/04/21 10:00 Sodium Level 141 mmol/L (136-145) Potassium Level 3.1 mmol/L (3.5-5.1) Chloride Level 101 mmol/L (98-107) Carbon Dioxide Level 27 mmol/L (21-32) Anion Gap 13 (6-14) Blood Urea Nitrogen 8 mg/dL (7-20) Creatinine 0.6 mg/dL (0.6-1.0) Estimated GFR (Cockcroft-Gault) 105.4 BUN/Creatinine Ratio 13 (6-20) Glucose Level 88 mg/dL (70-99) Calcium Level 8.6 mg/dL (8.5-10.1) Total Bilirubin 0.6 mg/dL (0.2-1.0) Aspartate Amino Transf (AST/SGOT) 26 U/L (15-37) Alanine Aminotransferase (ALT/SGPT) 38 U/L (14-59) Alkaline Phosphatase 78 U/L (46-116) Total Protein 7.4 g/dL (6.4-8.2) Albumin 4.0 g/dL (3.4-5.0) Albumin/Globulin Ratio 1.2 (1.0-1.7) Lipase 54 U/L (73-393) SARS-CoV-2 Antigen (Rapid) Negative (NEGATIVE) Assessment and Plan Assessmemt and Plan Problems Medical Problems: (1) Left flank pain Status: Acute Intractable abdominal pain Persistent nausea vomiting Yellow diarrhea Tobacco abuse Alcohol abuse Overweight Plan Consult GI Home meds DVT prophylaxis Full code As needed Zofran As needed morphine Trend labs IV fluid FEN - NPO PPX - lovenox FULL CODE Dispo - observation/inpatient for pancreatitis Comment Review of Relevant I have reviewed the following items abdelrahman (where applicable) has been applied. Medications: Current Medications Medications (Trade) Dose Ordered Sig/Tomasa Route PRN Reason Start Time Stop Time Status Last Admin Dose Admin Pantoprazole Sodium (PROTONIX VIAL for IV PUSH) 40 mg 1X ONCE IVP 09/03/21 13:00 09/03/21 13:01 DC 09/03/21 11:59 Hydromorphone HCl (Dilaudid) 2 mg PRN Q2HRS PRN IVP SEVERE PAIN 7-10 09/03/21 16:15 09/04/21 00:30 Morphine Sulfate (Morphine Sulfate) 2 mg PRN Q2HR PRN IV PAIN 09/04/21 10:30 09/04/21 10:48 Justifications for Admission Other Justification [id number] DUARTE III DO Sep 04, 2021 11:22
[2021-09-04 12:00] VITALS: BP 148/82
--- NOTE | 2021-09-04 12:22 | PDOC2 ---
GI CONSULT Date of Service: DATE: 09/04/21 TIME: 12:22 Reason For Consult: abd pain HPI: HPI: 51 y/o female admitted through ER. Initially had left flank pain wrapping around to left side that was worse when sitting up and coughing. No clear precipitating event - has a very physical job but nothing unusual. Also went picked up family member's two year old a couple times - also not unusual. Similar to past kidney stone pains. Symptoms have evolved to include bad acid reflux, "shocking" pelvis pains, intermittent lower abdominal cramping, and yellow acid diarrhea w/ blood streaks on toilet tissue (started after small bowel series). Long h/o acid reflux - worse x 6 months. Frequent reflux during the night, has to get up and make herself get sick. Says she lives on Rolaids, Pepto, and Mylanta. Did try a short course of Prilosec and omeprazole - ineffective. Concerned she might have an ulcer. Additional h/o alternating bowel habits - will go a few days without stooling and then have multiple stools. H/o partial colectomy @ [facility] in early-mid - was told had perforation ("pencil-sized hole") but unclear cause. Thinks had 'scopes at/around that time that showed "ulcers" - treated w/ Nexium and Carafate for a brief period, but also question of ulcerative colitis? Diverticulosis noted on imaging. No GB (note cholecystectomy mentioned in chart), liver, or pancreas history. 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 PMH: PMH: nephrolithiasis, endometriosis, staph infection (required IV antibiotics), anxiety, COPD, bronchitis, shingles (right face) lithotripsy, hysterectomy, partial colectomy, abd wall abscess i&D, right hand ORIF, appendectomy FH: Family History: Other (half sister has Crohn's, another sister has had many bowel surgeries) Social History: Smoke: Quit (2 years ago) ALCOHOL: occassional (sometimes on , Fridays, or Saturdays but not weekly) Drugs: None ROS: GEN: Denies fevers, chills, sweats HEENT: Denies blurred vision, sore throat CV: Denies chest pain RESP: Denies shortness of air, cough GI: Per HPI : urinary hesitancy ENDO: Denies weight changes NEURO: Denies confusion, dizziness MSK: chronic aches and pains SKIN: Denies jaundice, pruritus Vitals: Vitals: Vital Signs Date Time Temp Pulse Resp B/P (MAP) Pulse Ox O2 Delivery O2 Flow Rate FiO2 09/04/21 10:48 Room Air 09/04/21 07:00 99.2 96 18 102/63 (76) 95 99.2 Labs: Labs: Laboratory Tests Test 09/04/21 09:40 09/04/21 10:00 Sodium Level 141 mmol/L (136-145) Potassium Level 3.1 mmol/L (3.5-5.1) Chloride Level 101 mmol/L (98-107) Carbon Dioxide Level 27 mmol/L (21-32) Anion Gap 13 (6-14) Blood Urea Nitrogen 8 mg/dL (7-20) Creatinine 0.6 mg/dL (0.6-1.0) Estimated GFR (Cockcroft-Gault) 105.4 BUN/Creatinine Ratio 13 (6-20) Glucose Level 88 mg/dL (70-99) Calcium Level 8.6 mg/dL (8.5-10.1) Total Bilirubin 0.6 mg/dL (0.2-1.0) Aspartate Amino Transf (AST/SGOT) 26 U/L (15-37) Alanine Aminotransferase (ALT/SGPT) 38 U/L (14-59) Alkaline Phosphatase 78 U/L (46-116) Total Protein 7.4 g/dL (6.4-8.2) Albumin 4.0 g/dL (3.4-5.0) Albumin/Globulin Ratio 1.2 (1.0-1.7) Lipase 54 U/L (73-393) SARS-CoV-2 Antigen (Rapid) Negative (NEGATIVE) Allergies: Coded Allergies: Penicillins (Verified Allergy, Severe, Anaphylaxis, 02/05/19) amoxicillin (Verified Allergy, Severe, Anaphylaxis, 02/05/19) cephalexin (Verified Allergy, Severe, anaphylatic, 09/03/21) clavulanic acid (Verified Allergy, Severe, Anaphylaxis, 02/05/19) clindamycin (Verified Allergy, Severe, Swelling, 02/05/19) lidocaine (Verified Allergy, Severe, Anaphylaxis, 09/03/21) ketorolac (Verified Allergy, Intermediate, 09/03/21) Medications: Current Medications Medications (Trade) Dose Ordered Sig/Tomasa Route PRN Reason Start Time Stop Time Status Last Admin Dose Admin Pantoprazole Sodium (PROTONIX VIAL for IV PUSH) 40 mg 1X ONCE IVP 09/03/21 13:00 09/03/21 13:01 DC 09/03/21 11:59 Hydromorphone HCl (Dilaudid) 2 mg PRN Q2HRS PRN IVP SEVERE PAIN 7-10 09/03/21 16:15 09/04/21 00:30 Morphine Sulfate (Morphine Sulfate) 2 mg PRN Q2HR PRN IV PAIN 09/04/21 10:30 09/04/21 10:48 Imaging: Imaging: CT A/P 09/03 FINDINGS: Small hiatal hernia. Vascular: Scattered calcific atherosclerosis. Hepatobiliary: Liver is mildly low density. Nonspecific but can be from mild fatty infiltration. Pancreas: No peripancreatic edema. Spleen: Spleen unremarkable. Renal/Bladder: Urinary bladder is decompressed. No hydronephrosis. Gastrointestinal: Colonic diverticulosis. Postoperative changes to the colon with suture line seen. Small fat-containing umbilical hernia. Fat-containing anterior abdominal wall hernia. There is a couple of mildly prominent loops of small bowel including one in the left upper quadrant measuring up to 32 mm without high-grade transition point to suggest obstruction. Could be from phase of peristalsis. Mild degenerative changes of the spine. IMPRESSION: * No hydronephrosis or radiopaque obstructive ureter stone. * There is a couple of mildly dilated loops of bowel in the left-side of the abdomen without high-grade transition point to suggest obstruction. SBS 09/03 IMPRESSION: 1. Unremarkable small bowel series. PE: GEN: NAD HEENT: Atraumatic, PERRL LUNGS: CTAB HEART: RRR ABD: NABS, S/ND/NT - tender left flank along rib EXTREMITY: No edema SKIN: No rashes, no jaundice NEURO/PSYCH: A & O 3 A/P: A/P: Left flank pain - ?MSK Hypokalemia Mildly elevated lipase - unclear significance - quickly resolved Acid reflux, diarrhea, lower abd/pelvic pain Abnormal CT - couple of mildly dilated loops of bowel in the left-side of the abdomen - follow-up SBS unremarkable ?h/o PUD vs UC H/o colon perforation/partial colectomy H/o irregular/alternating bowel habits Diverticulosis NSAID use Rapid COVID negative -- Not sure left flank pain related to GI issue; however, does have reflux and takes high dose of ibuprofen. Retry PPI, consider EGD which could be done outpt - she's interested in recovering from this at home if possible. Will attempt to review records of previous surgery/scopes to settle the issue of ulcer history. Monitor diarrhea (?from barium) and rectal bleeding (?hemorrhoids - normal Hgb). Can try clears, advance diet as tolerated. Will return to see this afternoon w/ Dr. Lord. KIM GRIFFITHS Sep 04, 2021 12:22
[2021-09-04] MEDS ORDERED: CALCIUM CARBONATE 500 MG TAB.CHEW PO PRN (13:15)
[2021-09-04 15:00] VITALS: BP 115/55
[2021-09-04] MEDS ORDERED: POTASSIUM CHLORIDE 20 MEQ TABLET.ER. PO ONE (15:45)
[2021-09-04] MEDS: PANTOPRAZOLE 40 MG TABLET.DR. PO SCH (16:04)
[2021-09-04] MEDS: ONDANSETRON PF 4 MG/2 ML VIAL. IVP PRN (16:08)
--- NOTE | 2021-09-04 19:33 | NUR ---
1445 Lab called with change in potassium level from 4.5 on 09/03 to 3.1 on 09/04. Notified Dr. Logan. Potassium supplement was ordered.
[2021-09-04 19:50] VITALS: BP 111/77
[2021-09-04 23:32] VITALS: BP 114/60
[2021-09-05 02:56] VITALS: BP 104/53
[2021-09-05] MEDS: ONDANSETRON PF 4 MG/2 ML VIAL. IVP PRN ×2 (03:44→07:24)
[2021-09-05] MEDS: MORPHINE SULFATE 2 MG/ML INJ. IV PRN ×2 (03:46→07:24)
[2021-09-05 07:00] VITALS: BP 117/76
[2021-09-05] MEDS: PANTOPRAZOLE 40 MG TABLET.DR. PO SCH (08:17)
--- NOTE | 2021-09-05 09:18 | PDOC ---
Date of Service: DATE: 09/05/21 TIME: 09:15 Subjective: Subjective: Discouraged because ongoing left flank pain and no one has an answer. Hurts to lay on that side, feels like something is there. Reflux much better, no diarrhea. Tolerating clears and wants more to eat. Wants to go home. Wonders what she can take for back other than ibuprofen. Objective: Vital Signs: Vital Signs Date Time Temp Pulse Resp B/P (MAP) Pulse Ox O2 Delivery O2 Flow Rate FiO2 09/05/21 08:17 Room Air 09/05/21 07:00 98.4 82 20 117/76 (90) 94 98.4 Labs: Laboratory Tests Test 09/04/21 09:40 09/04/21 10:00 Sodium Level 141 mmol/L Potassium Level 3.1 mmol/L Chloride Level 101 mmol/L Carbon Dioxide Level 27 mmol/L Anion Gap 13 Blood Urea Nitrogen 8 mg/dL Creatinine 0.6 mg/dL Estimated GFR (Cockcroft-Gault) 105.4 BUN/Creatinine Ratio 13 Glucose Level 88 mg/dL Calcium Level 8.6 mg/dL Total Bilirubin 0.6 mg/dL Aspartate Amino Transf (AST/SGOT) 26 U/L Alanine Aminotransferase (ALT/SGPT) 38 U/L Alkaline Phosphatase 78 U/L Total Protein 7.4 g/dL Albumin 4.0 g/dL Albumin/Globulin Ratio 1.2 Lipase 54 U/L Coronavirus (COVID-19)(PCR) Not detected SARS-CoV-2 Antigen (Rapid) Negative PE: GEN: NAD LUNGS: CTAB HEART: RRR ABD: NABS, S/ND/NT - tenderness left flank NEURO/PSYCH: A & O 3 A/P: Left flank pain GERD - restarted on PPI yesterday - better H/o PUD (2/2 NSAIDs) H/o diverticular perf s/p resection -- Orders to [facility] yesterday - clarified with nurse who ordered reg breakfast tray. Improved GI-knight. Send home on PPI - counseled best to take QD 30-45 min before breakfast. Ideally would find an alternative to high dose NSAIDs. Justicifation of Admission Dx: Justifications for Admission: Justification of Admission Dx: Yes KIM GRIFFITHS Sep 05, 2021 09:18
[2021-09-05] MEDS ORDERED: CYCL10TA19 PO (10:35)
[2021-09-05] MEDS ORDERED: PANT40TA77 PO (10:35)
[2021-09-05 11:00] VITALS: BP 120/65
--- NOTE | 2021-09-05 11:25 | NUR ---
Pt discharged to home with rx sent to pharmacy. Verbalized understanding of discharge instructions.
--- NOTE | 2021-09-05 15:56 | DS ---
DATE OF DISCHARGE: 09/05/2021 ADMITTING DIAGNOSES: Abdominal pain, nausea, vomiting, diarrhea, left flank pain. DISCHARGE DIAGNOSES: 1. Resolving flank pain, suspect musculoskeletal. 2. Resolving gastroesophageal reflux disease, history of peptic ulcer disease, history of diverticular perferated with resection, tobacco abuse, alcohol abuse. CONSULTS: GI. PROCEDURES: None. HOSPITAL COURSE: The patient is a pleasant, middle-aged female who presented with some nausea, vomiting, abdominal pain, diarrhea and flank pain. We admitted her, consulted GI. We gave her fluids, p.r.n. pain meds and Zofran. Over the past couple of days, she has returned to her baseline. Today, I saw her and examined her. She wants to go home. We plan to discharge. DISPOSITION: Home. ACTIVITY: As tolerated. DIET: Low sodium. DISCHARGE MEDICATIONS: Please see the MRAD. TOTAL TIME: 34 minutes. [facility] [place] DR: Anne-Marie TID: [id number]
== END 2021-09-05 11:29 | disposition home or self-care (01) ==
LOC: ER 05:55 → 4 NORTH 10:55
PROVIDERS: ADMIT Internal Medicine; ATTEND Internal Medicine
DX: R10.9 Unspecified abdominal pain (principal); Z20.822 Contact with and (suspected) exposure to COVID-19; J44.9 Chronic obstructive pulmonary disease, unspecified; K44.9 Diaphragmatic hernia without obstruction or gangrene; F41.9 Anxiety disorder, unspecified; F19.20 Other psychoactive substance dependence, uncomplicated; R30.0 Dysuria; E66.3 Overweight; K21.9 Gastro-esophageal reflux disease without esophagitis; E87.6 Hypokalemia; K57.90 Diverticulosis of intestine, part unspecified, without perforation or abscess without bleeding; M54.9 Dorsalgia, unspecified; E66.9 Obesity, unspecified; F17.200 Nicotine dependence, unspecified, uncomplicated; B02.9 Zoster without complications; B95.8 Unspecified staphylococcus as the cause of diseases classified elsewhere; F10.10 Alcohol abuse, uncomplicated; K64.9 Unspecified hemorrhoids; K85.90 Acute pancreatitis without necrosis or infection, unspecified; N80.9 Endometriosis, unspecified; K51.90 Ulcerative colitis, unspecified, without complications; N20.0 Calculus of kidney; Z87.11 Personal history of peptic ulcer disease; Z90.49 Acquired absence of other specified parts of digestive tract; Z90.710 Acquired absence of both cervix and uterus; Z79.899 Other long term (current) drug therapy; Z98.890 Other specified postprocedural states; Z68.30 Body mass index [BMI] 30.0-30.9, adult; Z87.442 Personal history of urinary calculi
CPT/HCPCS: 36415; 74177; 74250; 80053; 81001; 81025; 83690; 85025; 87426; 96361; 96372; 96374; 96375; 96376; 99285; C9113; G0378; J1170; J2270; J2360; J2405; J3010; J7120; Q9967; U0003; G0379